=== PATIENT | female | born 1980 ===

== ENCOUNTER 2018-05-17 10:19 | Inpatient (IN) | payer OTHER ==
[2018-05-17] MEDS ORDERED: SODIUM CHLORIDE 0.9% 1,000 ML IV STA (10:33)
[2018-05-17] MEDS ORDERED: MORPHINE SULFATE 4 MG/ML SYRINGE IV STA (10:33)
[2018-05-17] MEDS ORDERED: ONDANSETRON 4 MG/2 ML VIAL IVP STA (10:33)
--- NOTE | 2018-05-17 10:43 | ED ---
Abdominal Pain HPI - General Source: patient, RN notes reviewed Mode of arrival: ambulatory Limitations: no limitations <Mamadou Miles - Last Filed: 05/17/18 13:41> <Reji Morley - Last Filed: 05/17/18 13:44> - General Chief Complaint: Abdominal Pain Stated Complaint: abdominal pain Time Seen by Provider: 05/17/18 10:26 - History of Present Illness Initial Comments: This is a 38-year-old female presents emergency Department with chief complaint of right-sided abdominal pain. Patient states started yesterday and states that has worsened. Patient states initially started in her back but now has located in the right lower abdomen. Patient has no history kidney stones. Patient denies diarrhea constipation. She does admit to nausea and vomiting. Patient states she has not been able thickening for her pain. Patient denies fever, chills, chest pain or shortness breath. Patient states nothing makes the pain feel better or worse. Patient had prior section no other abdominal surgeries. (Mamadou Miles) - Related Data Home Medications Medication Instructions Recorded Confirmed No Known Home Medications 05/17/18 05/17/18 Allergies Allergy/AdvReac Type Severity Reaction Status Date / Time ibuprofen Allergy Anaphylaxis Verified 05/17/18 11:00 Review of Systems ROS Other: All systems not noted in ROS Statement are negative. <Mamadou Miles - Last Filed: 05/17/18 13:41> ROS Other: All systems not noted in ROS Statement are negative. <Reji Morley - Last Filed: 05/17/18 13:44> ROS Statement: Those systems with pertinent positive or pertinent negative responses have been documented in the HPI. Past Medical History Past Medical History: No Reported History History of Any Multi-Drug Resistant Organisms: None Reported Past Surgical History: Section, Orthopedic Surgery Past Psychological History: No Psychological Hx Reported Smoking Status: Current every day smoker Past Alcohol Use History: None Reported, Occasional Past Drug Use History: None Reported <Mamadou Miles - Last Filed: 05/17/18 13:41> General Exam Limitations: no limitations General appearance: alert, in no apparent distress Head exam: Present: atraumatic, normocephalic, normal inspection Neck exam: Present: normal inspection. Absent: tenderness, meningismus, lymphadenopathy Respiratory exam: Present: normal lung sounds bilaterally. Absent: respiratory distress, wheezes, rales, rhonchi, stridor Cardiovascular Exam: Present: normal rhythm, tachycardia, normal heart sounds. Absent: systolic murmur, diastolic murmur, rubs, gallop, clicks GI/Abdominal exam: Present: soft, tenderness (Mild right lower quadrant), normal bowel sounds. Absent: distended, guarding, rebound, rigid Back exam: Present: CVA tenderness (R). Absent: CVA tenderness (L) Skin exam: Present: warm, dry, intact, normal color. Absent: rash <Mamadou Miles - Last Filed: 05/17/18 13:41> Vital Signs 05/17/18 05/17/18 10:22 13:24 Temperature 98.7 F Pulse Rate 119 H 86 Respiratory 18 16 Rate Blood Pressure 107/63 139/78 O2 Sat by Pulse 100 99 Oximetry Medical Decision Making - Lab Data Result diagrams: 05/17/18 11:26 05/17/18 11:26 <Mamadou Miels - Last Filed: 05/17/18 13:41> - Lab Data Result diagrams: 05/17/18 11:26 05/17/18 11:26 <Reji Morley - Last Filed: 05/17/18 13:44> - Medical Decision Making 38-year-old female presented emergency from for right-sided abdominal pain. Patient's found extensive pyelonephritis on CT. Patient has 24,000 white count and evidence of urinary tract infection. Patient was started on 2 g Rocephin will be admitted for pain control and IV antibiotics. (Mamadou Miles) Case reviewed with practitioner rey. Chart and results reviewed. Case was discussed with Dr. Roach, who will admit covering for hospital call. (Reji Morley) - Lab Data Lab Results 05/17/18 05/17/18 05/17/18 Range/Units 11:26 11:26 13:00 WBC 24.1 H (3.8-10.6) k/uL RBC 4.15 (3.80-5.40) m/uL Hgb 12.7 (11.4-16.0) gm/dL Hct 37.1 (34.0-46.0) % MCV 89.3 (80.0-100.0) fL MCH 30.7 (25.0-35.0) pg MCHC 34.3 (31.0-37.0) g/dL RDW 14.0 (11.5-15.5) % Plt Count 329 (150-450) k/uL Neutrophils % 85 % Lymphocytes % 6 % Monocytes % 6 % Eosinophils % 1 % Basophils % 0 % Neutrophils # 20.4 H (1.3-7.7) k/uL Lymphocytes # 1.5 (1.0-4.8) k/uL Monocytes # 1.5 H (0-1.0) k/uL Eosinophils # 0.3 (0-0.7) k/uL Basophils # 0.0 (0-0.2) k/uL Sodium 134 L (137-145) mmol/L Potassium 4.0 (3.5-5.1) mmol/L Chloride 102 (98-107) mmol/L Carbon Dioxide 22 (22-30) mmol/L Anion Gap 10 mmol/L BUN 12 (7-17) mg/dL Creatinine 0.84 (0.52-1.04) mg/dL Est GFR (CKD-EPI)AfAm >90 (>60 ml/min/1.73 sqM) Est GFR (CKD-EPI)NonAf 90 (>60 ml/min/1.73 sqM) Glucose 108 H (74-99) mg/dL Calcium 9.0 (8.4-10.2) mg/dL Total Bilirubin 1.4 H (0.2-1.3) mg/dL AST 17 (14-36) U/L ALT 28 (9-52) U/L Alkaline Phosphatase 67 (38-126) U/L Total Protein 6.8 (6.3-8.2) g/dL Albumin 3.4 L (3.5-5.0) g/dL Amylase <30 L (30-110) U/L Lipase 13 L (23-300) U/L Urine Color Light Yellow Urine Appearance Clear (Clear) Urine pH 6.5 (5.0-8.0) Ur Specific [place] 1.018 (1.001-1.035) Urine Protein Trace H (Negative) Urine Glucose (UA) Negative (Negative) Urine Ketones Negative (Negative) Urine Blood Trace H (Negative) Urine Nitrite Positive H (Negative) Urine Bilirubin Negative (Negative) Urine Urobilinogen <2.0 (<2.0) mg/dL Ur Leukocyte Esterase Large H (Negative) Urine RBC 1 (0-5) /hpf Urine WBC 76 H (0-5) /hpf Ur Squamous Epith Cells 1 (0-4) /hpf Urine Bacteria Rare H (None) /hpf Disposition <Mamadou Miles - Last Filed: 05/17/18 13:41> <Reji Morley - Last Filed: 05/17/18 13:44> Clinical Impression: Pyelonephritis Disposition: ADMITTED IP TO THIS HOSP Condition: Fair Referrals: None,Stated [Primary Care Provider] - 1-2 days
[2018-05-17 11:37] LABS: Basophils % (A) 0 %; Eosinophils # (A) 0.3 k/uL (0-0.7); Eosinophils % (A) 1 %; HCT 37.1 % (34.0-46.0); HGB 12.7 gm/dL (11.4-16.0); Lymphocytes # (A) 1.5 k/uL (1.0-4.8); Lymphocytes % (A) 6 %; MCH 30.7 pg (25.0-35.0); MCHC 34.3 g/dL (31.0-37.0); MCV 89.3 fL (80.0-100.0); Mean Platelet Volume 6.7; Monocytes # (A) 1.5 k/uL (0-1.0); Monocytes % (A) 6 %; Neutrophils # (A) 20.4 k/uL (1.3-7.7); Neutrophils % (A) 85 %; Platelet Count 329 k/uL (150-450); RBC 4.15 m/uL (3.80-5.40); WBC 24.1 k/uL (3.8-10.6)
[2018-05-17 11:53] LABS: ALT 28 U/L (9-52); AST 17 U/L (14-36); Albumin 3.4 g/dL (3.5-5.0); Alkaline Phosphatase 67 U/L (38-126); Amylase <30 U/L (30-110); Anion Gap 10 mmol/L; Blood Urea Nitrogen 12 mg/dL (7-17); Carbon Dioxide 22 mmol/L (22-30); Chloride 102 mmol/L (98-107); Glucose 108 mg/dL (74-99); Lipase 13 U/L (23-300); Sodium 134 mmol/L (137-145); Total Bilirubin 1.4 mg/dL (0.2-1.3); Total Protein 6.8 g/dL (6.3-8.2)
--- NOTE | 2018-05-17 11:59 | XR ---
EXAMINATION TYPE: XR KUB DATE OF EXAM: 05/17/2018 CLINICAL DATA: 38-year-old female with right lower quadrant pain after fall, [facility] COMPARISON: 03/20/2012 FINDINGS: Lung bases are clear. No evidence for free intraperitoneal air. No dilated small bowel or air-fluid levels. Scattered air and stool seen throughout the colon extendi ng distally into the rectum. Moderate stool burden. No suspicious calcifications identified. IMPRESSION: Moderate stool burden. No evidence of bowel obstruction or free intraperitoneal air.
--- NOTE | 2018-05-17 12:47 | CT ---
EXAMINATION TYPE: CT abdomen pelvis w con DATE OF EXAM: 05/17/2018 COMPARISON: Correlation radiograph same date HISTORY: 38-year-old female RLQ pain with nausea and fever TECHNIQUE: Contiguous axial scanning of the abdomen and pelvis following administration of 100 ml Iso juan 300 IV contrast. Delayed images through the kidneys and coronal/sagittal reconstructions perform ed. CT DLP: 623.5 mGycm Automated exposure control for dose reduction was used. FINDINGS: Heart normal size without pericardial effusion. Lung bases clear without pleural effusion. The liver is mildly enlarged at 18.9 cm. There may be mild underlying fatty infiltration. A couple ti ny subcentimeter hypodensity left liver lobe too small for accurate CT characterization, likely cysts . Portal venous system is patent. No biliary ductal dilatation. Gallbladder, adrenal glands, spleen, and pancreas appear within normal limits. Bilateral renal cysts measuring up to 2.6 and 2.5 cm on the left and measuring up to 3.1 cm on the ri ght. Subcentimeter hypodense cortical lesions in the right kidney are too small for accurate CT maria c cterization but also likely represent cysts. Extensive patchy and wedge-shaped areas of hypoenhancement and striated nephrograms within the right kidney. Moderate surrounding fat stranding is slightly edematous appearance of the right kidney. Ther e is some urothelial thickening on the right as well. No hydronephrosis. Relatively symmetric excreti on of contrast from the kidneys. Retroaortic left renal vein. No dilated small bowel, free fluid, or free air. Portion of a normal appendix is seen. Moderate stool burden. No pericolonic inflammatory change. Prominent fluid-filled small bowel loops in the lower abdomen and pelvis are nonspecific. Bladder partially distended. Pelvic phleboliths. Uterus and ovaries are visualized. There appears to be a possible 4.5 cm cyst or dominant follicle in the right ovary. Difficult to clearly delineate thi s from adjacent fluid-filled bowel loops. Follow-up ultrasound in 6-8 weeks can be performed. No abnormal fluid collection the pelvis or pelvic lymphadenopathy seen. Tampon is present low in the vaginal canal. Bones: No osseous destructive process. IMPRESSION: 1. CT FINDINGS HIGHLY SUGGESTIVE OF extensive right-sided pyelonephritis. 2. Prominent fluid-filled small bowel loops in the lower abdomen and pelvis could represent a ileus. 3. Mild hepatomegaly (18.9 cm) with possible mild fatty infiltration of the liver. 4. Either a prominent fluid-filled small bowel loop in the pelvis or a 4.5 cm right ovarian cyst/isidro nant follicle. Follow-up pelvic ultrasound in 6-8 weeks to reassess.
[2018-05-17 13:27] LABS: Appearance,Urine Clear (Clear); Bacteria,Urine Rare /hpf; Bilirubin,Urine Negative (Negative); Blood,Urine Trace (Negative); Color,Urine Light Yellow; Glucose,Urine (UA) Negative (Negative); Ketones,Urine Negative (Negative); Leukocyte Esterase,Urine Large (Negative); Nitrite,Urine Positive (Negative); PH, Urine 6.5 (5.0-8.0); Protein,Urine Trace (Negative); RBC,Urine 1 /hpf (0-5); Specific Gravity,Urine 1.018 (1.001-1.035); Squamous Epithelial Cell,Urine 1 /hpf (0-4); Urobilinogen,Urine <2.0 mg/dL (<2.0); WBC,Urine 76 /hpf (0-5)
[2018-05-17] MEDS ORDERED: HYDROmorphone 0.5 MG/0.5 ML SYRINGE IVP PRN (13:42)
[2018-05-17] MEDS ORDERED: ONDANSETRON 4 MG/2 ML VIAL IVP PRN (13:42)
[2018-05-17] MEDS: HYDROmorphone 1 MG/ML 1 ML SYRINGE IVP PRN ×2 (14:00→17:10)
[2018-05-17] MEDS: SODIUM CHLORIDE 0.9% 1,000 ML IV SCH ×4 (14:01→22:46)
[2018-05-17 15:47] VITALS: BMI 21.2
[2018-05-17] MEDS ORDERED: NALOXONE 0.4 MG/ML 1 ML VIAL IV PRN (15:58)
[2018-05-17] MEDS ORDERED: MELATONIN 3 MG TABLET PO PRN (15:58)
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
[2018-05-17] MEDS: NICOTINE 21MG/24HR PATCH TRANSDERM SCH (16:30)
[2018-05-17] MEDS: HYDROcodone/APAP 5-325MG 1 EACH TAB PO PRN (16:30)
[2018-05-17] MEDS ORDERED: INFLUENZA VACCINE (6 MOS+) 60 MCG/0.5 ML SYRINGE IM ONE (17:07)
[2018-05-17] MEDS ORDERED: PNEUMOCOCCAL VACC-PNEUMOVAX 23 25 MCG/0.5 ML VIAL IM ONE (17:07)
[2018-05-17] MEDS: ACETAMINOPHEN TAB 325 MG TAB PO PRN (18:40)
[2018-05-17] MEDS: HYDROmorphone 0.5 MG/0.5 ML SYRINGE IVP PRN ×2 (20:38→23:35)
[2018-05-17] MEDS: DOCUSATE 100 MG CAP PO PRN (23:36)
[2018-05-18] MEDS ORDERED: ALBUTEROL NEBULIZED (CONC) 5 MG, SODIUM CHLORIDE 0.9% NEBULIZ 3 ML INHALATION STA ×2 (00:19)
[2018-05-18] MEDS ORDERED: ALBUTEROL NEBULIZED 2.5 MG/3 ML INHALATION STA (00:43)
[2018-05-18] MEDS: HYDROcodone/APAP 5-325MG 1 EACH TAB PO PRN ×2 (01:37→08:45)
[2018-05-18] MEDS: HYDROmorphone 0.5 MG/0.5 ML SYRINGE IVP PRN ×5 (03:45→21:59)
[2018-05-18] MEDS: ACETAMINOPHEN TAB 325 MG TAB PO PRN ×2 (06:15→11:57)
[2018-05-18] MEDS: SODIUM CHLORIDE 0.9% 1,000 ML IV SCH ×3 (06:16→22:00)
[2018-05-18 07:25] LABS: HCT 32.5 % (34.0-46.0); HGB 10.8 gm/dL (11.4-16.0); MCH 30.7 pg (25.0-35.0); MCHC 33.4 g/dL (31.0-37.0); MCV 92.1 fL (80.0-100.0); Mean Platelet Volume 6.4; Platelet Count 277 k/uL (150-450); RBC 3.53 m/uL (3.80-5.40); WBC 19.7 k/uL (3.8-10.6)
[2018-05-18 07:36] LABS: Anion Gap 6 mmol/L; Blood Urea Nitrogen 10 mg/dL (7-17); Calcium 8.1 mg/dL (8.4-10.2); Carbon Dioxide 22 mmol/L (22-30); Chloride 107 mmol/L (98-107); Glucose 120 mg/dL (74-99); Potassium 3.8 mmol/L (3.5-5.1); Sodium 135 mmol/L (137-145)
[2018-05-18] MEDS: ENOXAPARIN 40 MG/0.4 ML SYRINGE SQ SCH (08:36)
[2018-05-18] MEDS: DOCUSATE 100 MG CAP PO PRN (08:36)
[2018-05-18] MEDS: NICOTINE 21MG/24HR PATCH TRANSDERM SCH (08:36)
[2018-05-18 10:56] LABS: Urine Alcohol Negative (Negative); Urine Barbiturate Negative (Negative); Urine Cocaine Negative (Negative); Urine Methadone Negative (Negative); Urine Opiates Negative (Negative); Urine Phencyclidine Negative (Negative)
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
[2018-05-18] MEDS: PANTOPRAZOLE 40 MG TABLET PO SCH (14:51)
[2018-05-18 15:45] LABS: N. gonorrhoeae,PCR Negative (Neg,Equiv); Neisseria Source Urine
[2018-05-18 15:54] LABS: C. trachomatis,PCR Positive (Neg,Equiv); Chlamydia trachomatis Source Urine
[2018-05-18 16:06] LABS: HIV 1 AB Non-Reactive (Non-Reactive); HIV AB P24 Non-Reactive (Non-Reactive); HIV P24 AG Non-Reactive (Non-Reactive)
[2018-05-18] MEDS: ALBUTEROL NEBULIZED 2.5 MG/3 ML INHALATION PRN (17:05)
[2018-05-18 20:40] VITALS: RESP 20
[2018-05-19] MEDS: HYDROcodone/APAP 10-325MG 1 EACH TAB PO PRN ×2 (02:50→08:09)
[2018-05-19] MEDS: HYDROmorphone 0.5 MG/0.5 ML SYRINGE IVP PRN (05:10)
[2018-05-19] MEDS: PANTOPRAZOLE 40 MG TABLET PO SCH (06:36)
[2018-05-19] MEDS: ALBUTEROL NEBULIZED 2.5 MG/3 ML INHALATION PRN (07:02)
[2018-05-19] MEDS: NICOTINE 21MG/24HR PATCH TRANSDERM SCH (08:09)
[2018-05-19] MEDS: DOCUSATE 100 MG CAP PO PRN (08:10)
[2018-05-19] MEDS: ENOXAPARIN 40 MG/0.4 ML SYRINGE SQ SCH (08:10)
[2018-05-19] MEDS: SODIUM CHLORIDE 0.9% 1,000 ML IV SCH ×2 (08:14→10:16)
[2018-05-19 08:58] VITALS: BP 115/80; PULSE 100; TEMP 98
[2018-05-19 09:23] LABS: HCT 33.9 % (34.0-46.0); HGB 10.7 gm/dL (11.4-16.0); Hypochromasia Slight; MCH 29.6 pg (25.0-35.0); MCHC 31.6 g/dL (31.0-37.0); MCV 93.8 fL (80.0-100.0); Mean Platelet Volume 6.7; Platelet Count 311 k/uL (150-450); RBC 3.62 m/uL (3.80-5.40); RDW 14.2 % (11.5-15.5); WBC 13.4 k/uL (3.8-10.6)
[2018-05-19 09:33] LABS: Anion Gap 8 mmol/L; Blood Urea Nitrogen 7 mg/dL (7-17); Calcium 8.5 mg/dL (8.4-10.2); Carbon Dioxide 20 mmol/L (22-30); Chloride 110 mmol/L (98-107); Glucose 111 mg/dL (74-99); Potassium 3.7 mmol/L (3.5-5.1); Sodium 138 mmol/L (137-145)
[2018-05-19] MEDS ORDERED: AZITHROMYCIN 500 MG TAB PO STA (11:36)
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
== END 2018-05-19 12:50 | disposition home or self-care (01) | DRG 872 ==
LOC: EC 10:19 → 6PED 13:44
PROVIDERS: ADMIT Family Medicine; ATTEND Family Medicine
PROC: 3E02340 Introduction of Influenza Vaccine into Muscle, Percutaneous Approach (ICD-10-PCS; principal; 2018-05-17)
PROC: 3E0234Z Introduction of Serum, Toxoid and Vaccine into Muscle, Percutaneous Approach (ICD-10-PCS; 2018-05-17)
DX: A41.51 Sepsis due to Escherichia coli [E. coli] (principal); K56.7 Ileus, unspecified; N12 Tubulo-interstitial nephritis, not specified as acute or chronic; R16.0 Hepatomegaly, not elsewhere classified; J45.909 Unspecified asthma, uncomplicated; F17.210 Nicotine dependence, cigarettes, uncomplicated; R12 Heartburn; A74.9 Chlamydial infection, unspecified; R00.0 Tachycardia, unspecified; N83.201 Unspecified ovarian cyst, right side; Z23 Encounter for immunization; Z98.891 History of uterine scar from previous surgery; Z83.3 Family history of diabetes mellitus; Z82.5 Family history of asthma and other chronic lower respiratory diseases; Z82.49 Family history of ischemic heart disease and other diseases of the circulatory system; Z83.79 Family history of other diseases of the digestive system
CPT/HCPCS: 36415; 74018; 74177; 80048; 80053; 80306; 81001; 82150; 83605; 83690; 85025; 85027; 87040; 87077; 87086; 87186; 87390; 87491; 87591; 90686; 90732; 94640; 96361; 96365; 96375; 99285

== ENCOUNTER 2019-04-09 11:37 | Inpatient (IN) | payer BC, OTHER ==
[2019-04-09] MEDS ORDERED: SODIUM CHLORIDE 0.9% 1,000 ML IV ONE (12:33)
[2019-04-09] MEDS ORDERED: NALOXONE 0.4 MG/ML 1 ML VIAL IV STA (12:33)
[2019-04-09 13:40] LABS: Lactic Acid, Venous 1.2 mmol/L (0.7-2.0)
[2019-04-09 13:42] LABS: Basophils # (A) 0.2 k/uL (0-0.2); Basophils % (A) 2 %; Eosinophils # (A) 0.2 k/uL (0-0.7); Eosinophils % (A) 2 %; HCT 46.8 % (34.0-46.0); Lymphocytes # (A) 1.8 k/uL (1.0-4.8); Lymphocytes % (A) 17 %; MCH 29.7 pg (25.0-35.0); MCHC 31.6 g/dL (31.0-37.0); Mean Platelet Volume 9.4; Monocytes # (A) 0.5 k/uL (0-1.0); Monocytes % (A) 5 %; Neutrophils # (A) 8.2 k/uL (1.3-7.7); Neutrophils % (A) 74 %; Platelet Count 561 k/uL (150-450); RBC 4.98 m/uL (3.80-5.40); RDW 15.3 % (11.5-15.5); WBC 11.1 k/uL (3.8-10.6)
[2019-04-09 13:49] LABS: ALT 32 U/L (4-34); AST 36 U/L (14-36); Acetaminophen <10.0 ug/mL; African American GFR (CKD) >90 (>60 ml/min/1.73 sqM); Albumin 4.3 g/dL (3.5-5.0); Alcohol <10 mg/dL; Alkaline Phosphatase 65 U/L (38-126); Anion Gap 8 mmol/L; Blood Urea Nitrogen 9 mg/dL (7-17); Calcium 9.5 mg/dL (8.4-10.2); Carbon Dioxide 25 mmol/L (22-30); Chloride 104 mmol/L (98-107); Creatine Kinase 26 U/L (30-135); Glucose 93 mg/dL (74-99); Non-African American GFR(CKD) >90 (>60 ml/min/1.73 sqM); Salicylate <1.0 mg/dL; Sodium 137 mmol/L (137-145); Total Bilirubin 0.5 mg/dL (0.2-1.3); Total Protein 8.3 g/dL (6.3-8.2)
[2019-04-09 13:50] LABS: HGB 14.8 gm/dL (11.4-16.0)
[2019-04-09 13:55] LABS: Potassium 4.8 mmol/L (3.5-5.1)
--- NOTE | 2019-04-09 14:19 | XR ---
EXAMINATION TYPE: XR abdomen acute w cxr DATE OF EXAM: 04/09/2019 COMPARISON: 04/06/2019 HISTORY: Abdomen pain TECHNIQUE: Abdomen is examined in the supine and upright views exam is supplemented with a frontal ch est. FINDINGS: Heart size is normal. Pulmonary vasculature is normal. The lungs are clear. No free air is under the diaphragm. No suspicious air-fluid levels or differential air-fluid levels a re present. Marked fecal debris is throughout the colon to the descending colon region. IMPRESSION: 1. Marked fecal retention through the ascending transverse and descending colon.
[2019-04-09 14:23] LABS: Amorphous Sediment,Urine Rare /hpf; Appearance,Urine Cloudy (Clear); Bacteria,Urine Rare /hpf; Bilirubin,Urine Negative (Negative); Blood,Urine Negative (Negative); Color,Urine Light Yellow; Glucose,Urine (UA) Negative (Negative); Ketones,Urine Negative (Negative); Leukocyte Esterase,Urine Negative (Negative); Mucus,Urine Rare /hpf; Nitrite,Urine Negative (Negative); Protein,Urine Negative (Negative); RBC,Urine 1 /hpf (0-5); Specific Gravity,Urine 1.011 (1.001-1.035); Squamous Epithelial Cell,Urine 9 /hpf (0-4); Urobilinogen,Urine <2.0 mg/dL (<2.0); WBC,Urine 8 /hpf (0-5)
[2019-04-09 14:30] LABS: Amphetamine Screen,Urine Not Detected (NotDetected); Barbiturate Screen,Urine Not Detected (NotDetected); Benzodiazepines Screen,Urine Not Detected (NotDetected); Cocaine Screen,Urine Detected (NotDetected); Methadone Screen, Urine Not Detected (NotDetected); Opiate Screen,Urine Not Detected (NotDetected); Oxycodone Screen, Urine Not Detected (NotDetected); Phencyclidine Screen,Urine Not Detected (NotDetected); Tricyclic Antidepressant,Urine Not Detected (NotDetected); Urn Cannabinoid Scrn Not Detected (NotDetected)
--- NOTE | 2019-04-09 14:42 | CT ---
EXAMINATION TYPE: CT brain wo con DATE OF EXAM: 04/09/2019 COMPARISON: 12/05/2011 HISTORY: Weakness. CT DLP: 1173.4 mGycm. Automated Exposure Control for Dose Reduction was Utilized. TECHNIQUE: CT scan of the head is performed without contrast. FINDINGS: There is no acute intracranial hemorrhage, mass effect, or midline shift identified. The ventricles and sulci are within normal limits in size. The globes are intact and the visualized sin uses are clear. IMPRESSION: No acute intracranial hemorrhage, mass effect, or midline shift is seen.
--- NOTE | 2019-04-09 16:17 | CT ---
EXAMINATION TYPE: CT abdomen pelvis w con DATE OF EXAM: 04/09/2019 COMPARISON: CT abdomen pelvis 04/06/2019 INDICATION: obstruction DLP: 884.3 mGycm, Automated exposure control for dose reduction was used. CONTRAST: 100 mL of Isovue 300. Study performed without Oral Contrast TECHNIQUE: Axial images were obtained from above the diaphragm to the pubic rami in the axial plane a t 5 mm thick sections. Reconstructed images are reviewed on the computer in the coronal plane. FINDINGS: Limited CT sections are obtained the lung bases. The lung bases are clear. CT ABDOMEN: Liver: Normal Spleen: Normal Pancreas: Normal Adrenal glands: The adrenal glands are normal. Gallbladder: Normal Kidneys: No masses are evident. No hydronephrosis is present. Bilateral renal cysts are present. D elayed images were obtained through the kidneys, which remain unremarkable. Aorta: Normal Inferior vena cava: Normal. CT PELVIS: There is some fluid-filled loops of bowel within the pelvis. There are loops of bowel which are incom pletely distended or lack oral contrast limiting their evaluation. Appendix: Normal as visualized. Urinary bladder: Normal. Genitourinary structures: Uterus appears normal. Multiple fluid filled areas are within the right adn exa likely cysts. The largest measures 4.9 cm. Left ovary may contain a couple small cysts. Osseous structures: No suspicious lytic or sclerotic lesions. IMPRESSIONS: 1. Bilateral ovarian cysts larger on the right. Additional workup with pelvic ultrasound is recommen ded. Transvaginal ultrasound may have better visualization given the large amount of bowel gas presen t at this time. Findings appear stable from 04/06/2019.
[2019-04-09] MEDS ORDERED: LACTULOSE 20 GM/30 ML CUP PO ONE (17:37)
[2019-04-09] MEDS ORDERED: NALOXONE 0.4 MG/ML 1 ML VIAL IV PRN (17:37)
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
[2019-04-09] MEDS: SODIUM CHLORIDE 0.9% 1,000 ML IV SCH (18:07)
[2019-04-09] MEDS: ACETAMINOPHEN IV (For NPO) 1,000 MG in EMPTY BAG 1 BAG IVPB PRN (20:24)
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
[2019-04-10] MEDS: SODIUM CHLORIDE 0.9% 1,000 ML IV SCH ×4 (00:05→22:18)
[2019-04-10] MEDS ORDERED: ONDANSETRON 4 MG/2 ML VIAL IVP PRN (02:25)
[2019-04-10] MEDS: ACETAMINOPHEN IV (For NPO) 1,000 MG in EMPTY BAG 1 BAG IVPB PRN ×2 (04:17→12:54)
[2019-04-10] MEDS: PANTOPRAZOLE 40 MG/10 ML VIAL IVP SCH (07:07)
--- NOTE | 2019-04-10 08:39 | US ---
EXAMINATION TYPE: US transvaginal DATE OF EXAM: 04/10/2019 COMPARISON: Previous study dated 03/20/2012. CLINICAL HISTORY: ovarian cyst abominal pain . TECHNIQUE: Transvaginal (TV). Date of LMP: 04/08/2019 EXAM MEASUREMENTS: Uterus: 9.6 x 4.2 x 7.0 cm Endometrial Stripe: 1.6 cm Right Ovary: 8.4 x 3.9 x 7.4 cm Left Ovary: 4.2 x 1.8 x 2.3 cm Technically difficult exam performed portably on patient with chains. 1. Uterus: Anteverted wnl 2. Endometrium: measures 1.6 cm, patient states LMP 3 days ago 3. Right Ovary: large septated cyst measures 6.7 x 3.7 x 5.3 cm 4. Left Ovary: Spectral, color and waveform doppler imaging shows good arterial and venous flow within the ovaries ; there is no evidence for ovarian torsion. 5. Bilateral Adnexa: wnl 6. Posterior cul-de-sac: no free fluid IMPRESSION: 1. ENLARGED ENDOMETRIAL STRIPE. FOLLOW-UP IS SUGGESTED TO ENSURE RETURNED TO NORMAL. 2. COMPLEX 6.7 CM RIGHT OVARIAN CYST.
[2019-04-10 12:11] LABS: HCT 41.1 % (34.0-46.0); HGB 13.1 gm/dL (11.4-16.0); Hypochromasia Slight; MCH 30.2 pg (25.0-35.0); MCHC 31.8 g/dL (31.0-37.0); MCV 94.7 fL (80.0-100.0); Mean Platelet Volume 6.8; Platelet Count 443 k/uL (150-450); RBC 4.34 m/uL (3.80-5.40); RDW 13.7 % (11.5-15.5); WBC 8.4 k/uL (3.8-10.6)
[2019-04-10 12:17] LABS: African American GFR (CKD) >90 (>60 ml/min/1.73 sqM); Anion Gap 6 mmol/L; Blood Urea Nitrogen 10 mg/dL (7-17); Carbon Dioxide 22 mmol/L (22-30); Chloride 108 mmol/L (98-107); Glucose 81 mg/dL (74-99); Non-African American GFR(CKD) >90 (>60 ml/min/1.73 sqM); Potassium 4.8 mmol/L (3.5-5.1); Sodium 136 mmol/L (137-145)
[2019-04-10] MEDS ORDERED: MAGNESIUM HYDROXIDE 2,400 MG/10 ML CUP PO PRN (12:19)
[2019-04-10] MEDS ORDERED: BISACODYL 10 MG SUPP RECTAL STA (12:19)
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
--- NOTE | 2019-04-10 15:48 | P.PN ---
Subjective Progress Note Date: 04/10/19 Principal diagnosis: abd pain Patient is a 39 yo female with a hx of asthma, tobacco abuse, polysubstance abuse, and polynephritis who presented to the emergency department from [facility] due to altered mentation. She was seen in the ER on the evening of 04/06/19 secondary to having possibly swallowed a bag of heroin at that point in time she had a computed tomography scan done which showed constipation and fecal impaction as well as a large ovarian cyst. At that point in time her UDS was positive for meth, opiates, and cocaine. She was ultimately cleared by the emergency department to return to [facility]. She was brought back in on 04/09/2019 secondary to altered mentation and worsening abdominal pain. Repeat computed tomography scan of the abdomen and pelvis showed dilated small bowel loops with no transition point and increased fecal retention as well as an ovarian cyst. She was admitted for further monitoring with concern that she would develop a complete obstruction or possible increased absorption of the drugs. Patient seen and examined at bedside. She reports abdominal pain. Initially she was sleeping when I entered the room. She is asking for more pain medications to control her pain and a diet but complaining of her abdominal pain. She denies any nausea or vomiting. We did discuss that she has ovarian cysts and will need outpatient follow-up with P[facility] TWISTING MACHINE OPERATOR and a transvaginal ultrasound. Objective - Vital Signs Vital signs: Vital Signs Temp 98.0 F 04/10/19 13:49 Pulse 73 04/10/19 13:49 Resp 18 04/10/19 13:49 BP 109/73 04/10/19 13:49 Pulse Ox 97 04/10/19 13:49 Intake & Output 04/09/19 04/10/19 04/10/19 18:59 06:59 18:59 Intake Total 0 0 Balance 0 0 Weight 72.575 kg 72.575 kg Intake: Oral 0 0 Other: Voiding Method Toilet # Voids 0 0 - Exam General: non toxic, no distress, appears at stated age Derm: multiple circular scars on upper arms, warm, dry Head: atraumatic, normocephalic, symmetric Eyes: EOMI, no lid lag, anicteric sclera Mouth: no lip lesion, mucus membranes moist Cardiovascular: S1S2 reg, no murmur, positive posterior tibial pulse bilateral, Lungs: Decreased bs bilateral, no rhonchi, no rales , no accessory muscle use Abdominal: soft, + tender to palpation diffusely, no guarding, no appreciable organomegaly Ext: no gross muscle atrophy, no edema, no contractures Neuro: CN II-XI grossly intact, no focal neuro deficits Psych: Alert, oriented, lethargic - Labs CBC & Chem 7: 04/10/19 11:47 04/10/19 11:47 Labs: Abnormal Lab Results - Last 24 Hours (Table) 04/09/19 04/10/19 Range/Units 13:55 11:47 Sodium 136 L (137-145) mmol/L Chloride 108 H (98-107) mmol/L Urine Appearance Cloudy H (Clear) Urine WBC 8 H (0-5) /hpf Ur Squamous Epith Cells 9 H (0-4) /hpf Amorphous Sediment Rare H (None) /hpf Urine Bacteria Rare H (None) /hpf Urine Mucus Rare H (None) /hpf Urine Cocaine Screen Detected H (NotDetected) Assessment and Plan Assessment: illeus - Possible ingestion of fatty containing heroin which may be leading to ileus versus partial obstruction -Continue to monitor for fecal output -Await general surgery recommendations -Avoid additional narcotic agents at this point in time -Maintain nothing by mouth diet until seen by surgery Complex right ovarian cyst with enlarged endometrial stripe - Recommend outpatient OUTSIDE MEDICAL SALES REPRESENTATIVE for possible cyst excision Altered mentation - appears to be improved - continue to follow likely either due to intoxication or withdrawal Polysubstance abuse - Attempt to limit any sedative or narcotic medications. Attempt pain control with IV acetaminophen and Toradol if no plans for surgical intervention. Tobacco abuse - cessation - nicotine replacement Leukocytosis, resolved DVT prophylaxis: SCDs Discussed with: Patient, nursing Anticipated discharge: in AM Anticipated discharge place: return to [facility] A total of 25 minutes was spent on the care of this complex patient more than 50% of the time was spent in counseling and care coordination.
[2019-04-11] MEDS: SODIUM CHLORIDE 0.9% 1,000 ML IV SCH ×2 (05:58→14:25)
[2019-04-11] MEDS: PANTOPRAZOLE 40 MG/10 ML VIAL IVP SCH (06:49)
[2019-04-11 08:21] LABS: HCT 38.6 % (34.0-46.0); HGB 12.6 gm/dL (11.4-16.0); MCH 30.3 pg (25.0-35.0); MCHC 32.6 g/dL (31.0-37.0); Platelet Count 399 k/uL (150-450); RBC 4.15 m/uL (3.80-5.40); RDW 13.7 % (11.5-15.5)
[2019-04-11 08:23] LABS: African American GFR (CKD) >90 (>60 ml/min/1.73 sqM); Blood Urea Nitrogen 9 mg/dL (7-17); Calcium 8.8 mg/dL (8.4-10.2); Carbon Dioxide 23 mmol/L (22-30); Glucose 80 mg/dL (74-99); Non-African American GFR(CKD) >90 (>60 ml/min/1.73 sqM)
[2019-04-11 08:25] LABS: Anion Gap 4 mmol/L; Chloride 111 mmol/L (98-107); Potassium 4.5 mmol/L (3.5-5.1); Sodium 138 mmol/L (137-145)
[2019-04-11] MEDS ORDERED: ACETAMINOPHEN TAB 325 MG TAB PO PRN (13:43)
[2019-04-11] MEDS ORDERED: IBUPROFEN 600 MG TAB PO PRN (13:43)
--- NOTE | 2019-04-11 14:20 | P.PN ---
Subjective Progress Note Date: 04/11/19 (delayed chartin seen at 1230) Principal diagnosis: abd pain Patient is a 39 yo female with a hx of asthma, tobacco abuse, polysubstance abuse, and prior polynephritis who presented to the emergency department from [facility] due to altered mentation. She was seen in the ER on the evening of 04/06/19 secondary to having possibly swallowed a bag of heroin at that point in time she had a computed tomography scan done which showed constipation and fecal impaction as well as a large ovarian cyst. At that point in time her UDS was positive for meth, opiates, and cocaine. She was ultimately cleared by the emergency department to return to [facility]. She was brought back in on secondary to altered mentation and worsening abdominal pain. Repeat computed tomography scan of the abdomen and pelvis showed dilated small bowel loops with no transition point and increased fecal retention as well as an ovarian cyst. She was admitted for further monitoring with concern that she would develop a complete obstruction or possible increased absorption of the drugs. Seen by surgery with no plans for surgical intervention. Patient seen and examined at bedside. She complains of abd pain and points that it is both on the right and the left side. No nausea. Asking for increased pain medications and an increased diet. Explained that we would not be using an opiate pain medications due to not knowing if she passed the bag she had swallowed and what was in the bag. I also informed her that due to the amount and location of stool on her CT we would not be increasing her diet until she had a bowel movement. Objective - Vital Signs Vital signs: Vital Signs Temp 97.7 F 04/11/19 14:05 Pulse 68 04/11/19 14:05 Resp 18 04/11/19 14:05 BP 110/73 04/11/19 14:05 Pulse Ox 99 04/11/19 14:05 Intake & Output 04/10/19 04/11/19 04/11/19 18:59 06:59 18:59 Intake Total 0 875 Balance 0 875 Intake: Oral 0 875 Other: Voiding Method Toilet Toilet Toilet # Voids 0 2 2 - Exam General: non toxic, no distress, appears at stated age Derm: multiple circular scars on upper arms, warm, dry Head: atraumatic, normocephalic, symmetric Eyes: EOMI, no lid lag, anicteric sclera Mouth: no lip lesion, mucus membranes moist Cardiovascular: S1S2 reg, no murmur, positive posterior tibial pulse bilateral, Lungs: CTA bilateral, no rhonchi, no rales , no accessory muscle use Abdominal: soft, + tender to palpation diffusely, no guarding, no appreciable organomegaly Ext: no gross muscle atrophy, no edema, no contractures Neuro: CN II-XI grossly intact, no focal neuro deficits Psych: Alert, oriented, lethargic - Labs CBC & Chem 7: 04/11/19 07:51 04/11/19 07:51 Labs: Abnormal Lab Results - Last 24 Hours (Table) 04/11/19 Range/Units 07:51 Chloride 111 H (98-107) mmol/L Assessment and Plan Assessment: illeus - Possible ingestion of bag containing heroin which may be leading to ileus versus partial obstruction - check acute abdominal series -Continue to monitor for fecal output -general surgery recommendations appreciated -Avoid additional narcotic agents at this point in time -Tylenol as need for pain considering motrin allergy - clear liquid diet until she has a bowel movement. Complex right ovarian cyst with enlarged endometrial stripe - Recommend outpatient TYPEWRITER [employer]IB[employer] WINDER for possible cyst excision/Evaluation Polysubstance abuse - Attempt to limit any sedative or narcotic medications. Attempt pain control with IV acetaminophen and Toradol if no plans for surgical intervention. Tobacco abuse - cessation - nicotine replacement Leukocytosis, resolved Toxic encephalopathy, resolved Back to [facility] once we verify that she is passing stool DVT prophylaxis: SCDs Discussed with: Patient, nursing Anticipated discharge: in AM Anticipated discharge place: return to [facility] A total of 25 minutes was spent on the care of this complex patient more than 50% of the time was spent in counseling and care coordination.
--- NOTE | 2019-04-11 16:32 | XR ---
EXAMINATION TYPE: XR abdomen acute w cxr DATE OF EXAM: 04/11/2019 COMPARISON: 04/09/2019 HISTORY: Abdominal pain TECHNIQUE: Chest x-ray with supine and upright abdomen 4 views FINDINGS: There is no heart failure nor confluent pneumonic infiltrate. Costophrenic angles are clear . There are no hilar masses. Bowel gas pattern is normal. There is no sign of intestinal obstruction or pneumoperitoneum. Fecal pattern is normal. There is no evidence of a mass. There are no pathologic calcifications over the kidneys. IMPRESSION: Normal chest. Nonacute abdomen. There is decreased fecal material compared to old exam.
[2019-04-11 23:27] VITALS: RESP 16
[2019-04-12] MEDS: PANTOPRAZOLE 40 MG/10 ML VIAL IVP SCH (09:13)
[2019-04-12] MEDS ORDERED: PANTOPRAZOLE SODIUM 40 MG GRANULE PKT PO SCH (09:15)
--- NOTE | 2019-04-12 09:39 | P.PN ---
Subjective Progress Note Date: 04/11/19 Patient had BM. Tolerating clears. Abdominal pain improved Objective - Vital Signs Vital signs: Vital Signs Temp 97.7 F 04/12/19 05:37 Pulse 61 04/12/19 05:37 Resp 16 04/12/19 05:37 BP 99/64 04/12/19 05:37 Pulse Ox 99 04/12/19 05:37 Intake & Output 04/11/19 04/12/19 04/12/19 18:59 06:59 18:59 Intake Total 300 Balance 300 Intake: Oral 300 Other: Voiding Method Toilet Toilet # Voids 2 2 - Constitutional General appearance: Present: cooperative - Respiratory Details: nonlabored - Cardiovascular Rhythm: regular - Gastrointestinal Gastrointestinal Comment(s): S/NT/ND - Labs CBC & Chem 7: 04/11/19 07:51 04/11/19 07:51 Assessment and Plan Assessment: Abdominal pain Constipation Plan: Advance diet as tolerated. Patient is having BM and pain is resolved. No plans for surgical intervention. Cleared from surgical standpoint. Continue with stool softeners and suppository as needed.
--- NOTE | 2019-04-12 11:08 | P.PN ---
Subjective Chart was reviewed patient was examined. Today she's doing about the same. She had bowel movements yesterday. She is passing gas today. She tolerated clear liquid diet. She does not have any particular pain or discomfort. She does not have any nausea or vomiting. Objective - Vital Signs Vital signs: Vital Signs Temp 97.7 F 04/12/19 05:37 Pulse 61 04/12/19 05:37 Resp 16 04/12/19 05:37 BP 99/64 04/12/19 05:37 Pulse Ox 99 04/12/19 05:37 Intake & Output 04/11/19 04/12/19 04/12/19 18:59 06:59 18:59 Intake Total 300 Balance 300 Intake: Oral 300 Other: Voiding Method Toilet Toilet # Voids 2 2 - Exam Vital Signs: I have reviewed the vital signs. GENERAL: Well-nourished, Well-developed , no apparent distress, cooperative Eyes: PERRL, extraoculry movements intact, clear conjunctiva Head: : Atraumatic external nose and ears, oropharyngeal mucosa is moist without lesions or exudates Neck: Symmetric, trachea midline, No thyromegaly, no masses or neck vain pulsation, no neck rigidity CVS: +S1/S2, No murmurs or gallops. Peripheral pulses 2+ and equal in all extremities. RESP: Unlabored respiratory effort. Clear to auscultation bilaterally. Abdomen: Bowel sounds present in all 4 quadrants, Soft to palpation, Nontender/Nondistended, No hepatosplenomegaly, no hernias or masses, no CVA tnderness Musculoskeletal: Extremities w/o deformity, No cyanosis or clubbing, no joint swelling Skin: Warm, Dry. No rashes or lesions Neuro: insurance manager II-XII grossly intact, motor strenght 5/5 i upper and lower extremities, no clonus, patellar DTRs 2+ and sympetrical Psych: Awake, Alert, & Oriented (AAO) x3 Appropriate mood and affect - Labs CBC & Chem 7: 04/11/19 07:51 04/11/19 07:51 Assessment and Plan Assessment: 1. Abdominal pain and ileus Surgical consultation appreciated Patient had a bowel movement and asymptomatic tolerating clear liquid diet and she has been cleared by surgery for discharge We will plan to advance the diet and patient tolerates consider discharge 2. Right ovarian cyst Patient will need follow-up with gynecology on outpatient basis within 1 week after discharge 3. acute toxic metabolic encephalopathy [place] to be due to polysubstance abuse Resolved and patient is currently baseline
[2019-04-12 14:32] VITALS: BP 100/63; PULSE 67; TEMP 98.6
--- NOTE | 2019-04-12 15:16 | P.DS ---
Providers Date of admission: 04/11/19 14:07 Attending physician: Dayton Cabrera MD Consults: 04/09/19 17:38 Consult Physician Urgent Consulting Provider: Kobe Scott Consult Reason/Comments: abd pain, drug ingestion, ileus Do you want consulting provider notified?: Already Contacted Primary care physician: Stated None Hospital Course: Date of discharge: 04/12/09 intensity Consultants: Gen. surgery Reason for admission: Abdominal pain, ileus Discharge diagnosis: 1. No specific ileus likely from opiate abuse and constipation 2. Opioid abuse 3. Constipation History of present illness: Patient is a 39 yo female with a hx of asthma, tobacco abuse, polysubstance abuse, and prior polynephritis who presented [facility] department [facility] due to altered mentation. She was seen in the ER on the evening of 04/06/19 secondary to having possibly swallowed a bag of heroin at that point in time she had a computed tomography scan done which showed constipation and fecal impaction as well as a large ovarian cyst. At that point in time her UDS was positive for meth, opiates, and cocaine. She was ultimately cleared by the emergency department to return to [facility]. She was brought back in on 04/09/2019 secondary to altered mentation and worsening abdominal pain. Repeat computed tomography scan of the abdomen and pelvis showed dilated small bowel loops with no transition point and increased fecal retention as well as an ovarian cyst. She was admitted for further monitoring with concern that she would develop a complete obstruction or possible increased absorption of the drugs. Seen by surgery with no plans for surgical intervention. Hospital course: Patient was monitored here in the hospital for 3 days. She was placed nothing by mouth. General surgery valid to the patient. She was given IV fluids. Patient remained asymptomatic with normal mentation and no abdominal pain. She does have a nausea or vomiting. She had a normal bowel movement. She was passing gas. General surgery started the diet and cleared the patient for discharge. Patient tolerated regular diet without any difficulties. In discussion with the patient she did not want to reveal what she took. Further investigation during this stay straightaway from disability that she ingested a hearing pocket. Probably she was just using straight drugs. Repeat x-ray of the abdomen showed normal gas pattern without any significant acute changes. Physical examination under discharge was nonfocal. Her abdomen is soft nontender nondistended bowel sounds are present. Her mentation was normal pupils were normal and reactive to light. Patient was discharge back to [facility]. Given the finding of the large complex right ovarian cyst I advised patient to follow-up with travel ticketing reviewer as soon as possible and that recommendation was placed in her discharge paperwork. Patient Condition at Discharge: Serious Plan - Discharge Summary New Discharge Prescriptions: No Action Sulfamethox-Tmp 800-160Mg [Bactrim DS 800-160 mg] 1 tab PO Q12HR Ibuprofen [Motrin Ib] 400 mg PO BID PRN PRN Reason: Pain Discharge Medication List Ibuprofen [Motrin Ib] 400 mg PO BID PRN 04/09/19 [History] Sulfamethox-Tmp 800-160Mg [Bactrim DS 800-160 mg] 1 tab PO Q12HR 04/09/19 [History] Follow up Appointment(s)/Referral(s): None,Stated [Primary Care Provider] - 1-2 days
[2019-04-13] MEDS ORDERED: PANTOPRAZOLE 40 MG TABLET PO SCH (07:30)
== END 2019-04-12 16:39 | disposition home or self-care (01) | DRG 388 ==
LOC: EC 11:37 → 6NMEDSUR 17:37 → OBSVTOIN 04-11 14:07
PROVIDERS: ADMIT Internal Medicine; ATTEND Internal Medicine
DX: K56.7 Ileus, unspecified (principal); G92 Toxic encephalopathy; K59.03 Drug induced constipation; T40.2X5A Adverse effect of other opioids, initial encounter; D72.829 Elevated white blood cell count, unspecified; F11.10 Opioid abuse, uncomplicated; D47.3 Essential (hemorrhagic) thrombocythemia; N83.291 Other ovarian cyst, right side; J45.909 Unspecified asthma, uncomplicated; F17.200 Nicotine dependence, unspecified, uncomplicated; Z71.6 Tobacco abuse counseling; Z98.891 History of uterine scar from previous surgery; Z98.890 Other specified postprocedural states; Z88.6 Allergy status to analgesic agent; Z83.3 Family history of diabetes mellitus; Z82.5 Family history of asthma and other chronic lower respiratory diseases; Z82.49 Family history of ischemic heart disease and other diseases of the circulatory system; Z83.79 Family history of other diseases of the digestive system
CPT/HCPCS: 36415; 70450; 74022; 74177; 76830; 80048; 80053; 80306; 80320; 80329; 81001; 81025; 82140; 82550; 83520; 83605; 85025; 85027; 93005; 93975; 96360; 96361; 99285